=== PATIENT | male | born 2000 | race Caucasian/White ===

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

== ENCOUNTER 2019-08-10 23:02 | Emergency (ER) | payer OTHER ==
[~2019-08-10] VITALS: Ht 182.9 cm; Wt 81.7 kg
== END 2019-08-11 01:52 | disposition left against medical advice (07) ==
LOC: ER 23:02
DX: Z53.21 Procedure and treatment not carried out due to patient leaving prior to being seen by health care provider (principal)

== ENCOUNTER 2019-12-11 19:19 | Emergency (ER) | payer OTHER ==
[~2019-12-11] VITALS: Ht 182.9 cm; Wt 90.7 kg
== END 2019-12-11 19:45 ==
LOC: ER 19:19
DX: Z00.00 Encounter for general adult medical examination without abnormal findings (principal); F90.9 Attention-deficit hyperactivity disorder, unspecified type; Z88.1 Allergy status to other antibiotic agents; Z88.8 Allergy status to other drugs, medicaments and biological substances; Z79.899 Other long term (current) drug therapy
CPT/HCPCS: 99282

== ENCOUNTER 2022-11-09 22:42 | Emergency (ER) | payer OTHER ==
[~2022-11-09] VITALS: Ht 180.3 cm; Wt 104.3 kg
[2022-11-09 22:55] VITALS: BP 134/82
[2022-11-09] MEDS ORDERED: VRAYLAR6 MG PO (23:00)
[2022-11-09] MEDS ORDERED: ATOM18 PO (23:00)
[2022-11-09] MEDS ORDERED: TRAM50 PO (23:24)
[2022-11-09] MEDS ORDERED: CLIN300 PO (23:24)
== END 2022-11-09 23:48 | disposition home or self-care (01) ==
LOC: ER 22:42
DX: K02.9 Dental caries, unspecified (principal); Z88.8 Allergy status to other drugs, medicaments and biological substances; Z88.1 Allergy status to other antibiotic agents; Z79.899 Other long term (current) drug therapy
CPT/HCPCS: 96372; 99282-25; A9270; J1885

== ENCOUNTER 2022-12-12 16:05 | Emergency (ER) | payer OTHER ==
[~2022-12-12] VITALS: Ht 182.9 cm; Wt 90.7 kg
[~2022-12-12 16:05] MED LIST changes: +ATOM18 PO; +CLIN300 PO; +TRAM50 PO; +VRAYLAR6 MG PO
[2022-12-12 16:32] VITALS: BP 109/89
[2022-12-12] MEDS ORDERED: Amoxicillin500 MG PO (16:35)
== END 2022-12-12 16:35 | disposition home or self-care (01) ==
LOC: ER 16:05
DX: K04.7 Periapical abscess without sinus (principal); Z88.8 Allergy status to other drugs, medicaments and biological substances; Z88.1 Allergy status to other antibiotic agents
CPT/HCPCS: 99282

== ENCOUNTER 2023-05-09 03:32 | Emergency (ER) | payer OTHER ==
[~2023-05-09] VITALS: Ht 182.9 cm; Wt 90.7 kg
[~2023-05-09 03:32] MED LIST changes: +Amoxicillin500 MG PO
[2023-05-09 04:15] VITALS: BP 136/83
[2023-05-09] MEDS ORDERED: FAMO20 PO (04:28)
[2023-05-09] MEDS ORDERED: ALMACONE SUSPE355 ML PO (04:28)
== END 2023-05-09 04:45 | disposition home or self-care (01) ==
LOC: ER 03:32
DX: K21.9 Gastro-esophageal reflux disease without esophagitis (principal)
CPT/HCPCS: 93005; 93010; 99283-25; A9270

== ENCOUNTER 2024-11-22 06:18 | Emergency (ER) | payer OTHER ==
[~2024-11-22] VITALS: Ht 180.3 cm; Wt 108.9 kg
[~2024-11-22 06:18] MED LIST changes: +ALMACONE SUSPE355 ML PO; +FAMO20 PO
[2024-11-22 06:34] VITALS: BP 146/79
[2024-11-22 06:36] LABS: BASOPHILS ABSOLUTE AUTO 0.05 K/mm3 (0.00-0.23); BASOPHILS PERCENT AUTO 1 % (0-2); EOSINOPHILS ABSOLUTE AUTO 0.04 K/mm3 (0.00-0.68); EOSINOPHILS PERCENT AUTO 1 % (0-6); Hematocrit 39.2 % (37.0-53.0); Hemoglobin 13.2 g/dL (13.5-17.5); IMMATURE GRAN PERCENT AUTO 1 % (0-1); LYMPHOCYTES ABSOLUTE AUTO 2.43 K/mm3 (0.84-5.20); LYMPHOCYTES PERCENT AUTO 31 % (21-46); MONOCYTES ABSOLUTE AUTO 0.61 K/mm3 (0.16-1.47); MONOCYTES PERCENT AUTO 8 % (4-13); Mean Corpuscular HGB Conc 33.7 g/dL (31.5-36.5); Mean Corpuscular Volume 89 fL (80-100); NEUTROPHILS ABSOLUTE AUTO 4.64 K/mm3 (1.96-9.15); NEUTROPHILS PERCENT AUTO 59 % (41-73); Platelet Count 290 K/mm3 (150-400); RDW Coefficient Variation 12.8 % (11.7-14.2); RDW Standard Deviation 42.1 fL (35.1-46.3); White Blood Cell Count 7.87 K/mm3 (4.00-11.30)
[2024-11-22 07:00] LABS: Ethanol (Alcohol), Blood, Med <3 mg/dL
[2024-11-22 07:01] LABS: Alanine Aminotransfer (ALT/SGP 38 U/L (12-78); Albumin/Globulin Ratio 1.2 (0.8-1.8); Alk Phos 100 U/L (50-136); Anion Gap 9 mmol/L (3-11); Aspartate Aminotrans (AST/SGOT 32 U/L (12-37); Bilirubin, Total 1.9 mg/dL (0.1-1.0); Blood Urea Nitrogen 11 mg/dL (8-24); Bun/Creatinine Ratio 9.5 (12.0-20.0); CO2, Blood 25 mmol/L (21-32); Calcium, Blood 8.8 mg/dL (8.5-10.1); Chloride, Blood 105 mmol/L (98-108); Creatinine, Blood 1.16 mg/dL (0.60-1.20); Globulin, Blood 3.4 g/dL (2.2-4.0); Glomerular Filtration Rate 89 (60-); Glucose, Blood 111 mg/dL (70-99); Potassium, Blood 3.4 mmol/L (3.5-5.5); Sodium, Blood 136 mmol/L (136-145); Total Protein, Blood 7.4 g/dL (6.4-8.2)
[2024-11-22] MEDS ORDERED: OXAYDO5 M1 PO (09:14)
[2024-11-22] MEDS ORDERED: ONDA4 PO (09:14)
[2024-11-22] MEDS ORDERED: Acetaminophen 500 MG Tab PO ONE (09:15)
[2024-11-22] MEDS ORDERED: Ketorolac Tromethamine 15mg Vial IV ONE (09:15)
== END 2024-11-22 09:43 | disposition home or self-care (01) ==
LOC: ER 06:18
PROVIDERS: Student in an Organized Health Care Education/Training Program
DX: S02.2XXA Fracture of nasal bones, initial encounter for closed fracture (principal); S22.31XA Fracture of one rib, right side, initial encounter for closed fracture; S06.0X9A Concussion with loss of consciousness of unspecified duration, initial encounter; S00.03XA Contusion of scalp, initial encounter; F17.210 Nicotine dependence, cigarettes, uncomplicated; V89.2XXA Person injured in unspecified motor-vehicle accident, traffic, initial encounter; Z88.8 Allergy status to other drugs, medicaments and biological substances; Z88.1 Allergy status to other antibiotic agents
CPT/HCPCS: 70450; 71045; 71260; 72125; 73610; 74177; 80053; 80320; 85025; 96374-59; 99285-25; A9270; J1885; Q9967